=== PATIENT | female | born 1965 | race Caucasian/White ===

== ENCOUNTER 2017-01-12 07:04 | Outpatient (CLI) ==
--- NOTE | 2017-01-12 08:34 | US ---
EXAM: Ultrasound abdomen limited. HISTORY: Elevated liver enzymes. COMPARISON: None available. TECHNIQUE: Abdominal, real time with image documentation: limited (eg, single organ, quadrant, foll ow-up) FINDINGS: The liver demonstrates homogeneous echotexture without intrahepatic biliary dilatation. P ortal venous flow is normal in direction. The gallbladder is absent. Common duct measures approxima tely 0.5 cm. Visualized portions of the pancreas are unremarkable. IMPRESSION: No sonographic abnormality of the liver or biliary system.
== END 2017-01-12 07:05 | disposition home or self-care (01) ==
LOC: RAD 07:04
PROVIDERS: ATTEND Family Medicine
DX: R74.8 Abnormal levels of other serum enzymes (principal)